=== PATIENT | male | born 1965 | race Caucasian/White ===

== ENCOUNTER 2024-08-22 19:44 | Inpatient (IN) | payer OTHER ==
[2024-08-22] MEDS ORDERED: NA CHLORIDE 0.9% 500 ML ONE (20:40)
[2024-08-22] MEDS ORDERED: ALBUMIN HUMAN 25% 100 ML IV ONE (20:41)
[2024-08-22 20:48] LABS: Absolute Lymphocytes (CBC) 0.6 K/uL (0.7-4.9); Absolute Monocytes 0.2 K/uL (0.1-1.3); Absolute Neutrophil 0.5 K/uL (1.8-8.0); Basophils % 1.1 % (0-1.3); Eosinophils % 2.2 % (0-4.4); Hematocrit 33.6 % (39.6-49.0); Lymphocytes % 42.9 % (15.3-44.8); MCH 32.5 pg (27.0-35.0); MCHC 35.6 g/dL (32.0-36.0); MCV 91.3 fL (80-100); MPV 9.4 fL (7.6-11.3); Monocytes % 16.5 % (3.3-12.3); Neutrophils % 37.3 % (41.7-73.7); Nucleated Red Blood Cells % 0.1 % (0-0); Platelets 59 thou/uL (152-406); RBC Red Blood Cell Count 3.68 M/uL (4.33-5.43); Red Cell Distribution Width 14.4 % (12.1-15.2)
[2024-08-22 21:02] LABS: Influenza A Ag Negative; Influenza B Ag Negative; SARS-CoV-2 Antigen Rapid Res Negative (Negative)
[2024-08-22 21:16] LABS: PT Prothrombin Time 11.2 SECONDS (10.0-13.0); PTT, Activated Partial Thromb 28.7 SECONDS (24.3-36.9); Protime INR 0.98
[2024-08-22 21:17] LABS: Albumin 1.9 g/dL (3.4-5.0); Albumin/Globulin Ratio 0.5 (1.1-1.8); Anion Gap 7.8 mEq/L (5.0-15.0); Bilirubin Total 0.7 mg/dL (0.2-1.0); Globulin 3.5 g/dL (2.3-3.5); Potassium 2.8 mEq/L (3.5-5.1); Protein, Total 5.4 g/dL (6.4-8.2)
[2024-08-22 21:25] LABS: Differential Total Cells Count 50; White Blood Cell Scan DIFF (OK)
[2024-08-22 21:26] LABS: Blood Morphology Comment NOT SEEN (NOT SEEN); Lymphocytes 47 % (15-42); Monocytes 16 % (0-10); Platelet Estimate DECR; Segmented Neutrophils 37 % (40-80)
--- NOTE | 2024-08-22 21:28 | RAD REPORT ---
EXAM: Chest Single View HISTORY: 58 years Male syncope, hypotension COMPARISON: None. FINDINGS: LUNGS/PLEURA: The lungs are clear. No pleural effusions or pneumothorax. No pulmonary edema. CARDIAC/MEDIASTINUM: The cardiac silhouette is within normal limits. UPPER ABDOMEN: No significant abnormality. BONES: No acute abnormality. LINES/TUBES/OTHER: Portacath. IMPRESSION: No evidence of acute cardiopulmonary disease.
[2024-08-22] MEDS ORDERED: NA CHLORIDE 0.9% 250 ML ONE (21:56)
[2024-08-22] MEDS ORDERED: KCL 20 MEQ/100 mL IVPB 100 ML IV ONE (21:56)
--- NOTE | 2024-08-22 22:34 | RAD REPORT ---
EXAMINATION: CT ABDOMEN AND PELVIS WITH CONTRAST CLINICAL INDICATION: Male, 58 years old.diarrhea, s/p paracentesis today TECHNIQUE: CT abdomen and pelvis was performed, after the administration of IV contrast, as per [facility] protocol. Axial, sagittal and coronal reconstructions were obtained. One or more of the following dose reduction techniques were used: Automated exposure control, adjustment of the mA and/o r kV according to patient size, and/or iterative reconstruction. Unless otherwise specified, incidental findings do not require dedicated imaging follow-up. [id number]. COMPARISON: No prior exam. FINDINGS: LOWER CHEST: No acute process identified.No significant pericardial effusion. Moderate circumferentia l thickening of the distal esophagus which could reflect esophagitis. Endoscopy could better evaluate. UPPER GI: Diffuse gastric wall thickening. LIVER: Cirrhotic liver morphology. No focal mass. GALLBLADDER/BILE DUCTS: Distended but otherwise unremarkable.? PANCREAS: No mass, ductal dilation, or saman-pancreatic fluid. SPLEEN: Moderate splenomegaly. ADRENALS: No adrenal masses. KIDNEYS AND URETERS: No hydronephrosis.No suspicious renal mass. ABDOMINAL AORTA AND OTHER VESSELS: Mild atherosclerotic changes. PERITONEUM: Moderate ascites. Mild peritoneal enhancement. LYMPH NODES: No pathologic lymphadenopathy. ABDOMINAL WALL: Unremarkable SMALL BOWEL/COLON: Diffuse colonic and small bowel wall thickening which may be due to portal hyperte nsion. Liquid contents in the colon. URINARY BLADDER: Underdistended but grossly unremarkable. REPRODUCTIVE ORGANS: No pathologic process. MUSCULOSKELETAL: No acute or suspicious osseous abnormality. ADDITIONAL FINDINGS: None. IMPRESSION: Cirrhosis with evidence of portal hypertension including moderate ascites, diffuse gastric and bowel wall thickening, and splenomegaly. Mild peritoneal enhancement could indicate peritonitis. Note that an enteritis or colitis would be difficult to exclude though bowel wall thickening is not uncomm on in the setting of portal hypertension.
[2024-08-22] MEDS ORDERED: LIDOCAINE 1% MPF 5 ML VIAL ONE (22:56)
--- NOTE | 2024-08-22 23:13 | EDPHYS ---
Physician Documentation [facility] Name: Rashaad Quintero Age: 58 yrs Sex: Male : 1965 Arrival Date: 08/22/2024 Time: 19:44 Bed 19 Private MD: ED Physician Ricardo Tan HPI: 08/22 20:26 This 58 yrs old Male presents to ER via EMS with complaints of Syncope. rn 20:26 The patient has experienced syncope. Onset: The symptoms/episode began/occurred today. rn Duration: This was a single episode. Associated injury: The patient did not suffer any apparent associated injury. Current symptoms: Currently, the patient is not experiencing any symptoms. The patient has not experienced similar symptoms in the past. Patient reports had paracentesis earlier in day. Went home. Got up to walk and passed out. No injuries. Reports has stomach cancer but denies liver problems. Gets paracentesis every few weeks, states 13 L versus pounds removed today. Denies any pain. Does report decreased appetite and diarrhea for the last few days. Reports possible fever at home but no fever here. Given IV fluids by EMS prior to arrival with improvement of blood pressure.. Historical: - Allergies: 19:55 NKDA; me1 - PMHx: 19:55 colorectal and stomach cancer; me1 - PSHx: 19:55 None; me1 - Immunization history:: Adult Immunizations up to date. - Infectious Disease History:: Denies. - Social history:: Smoking status: Patient denies any tobacco usage or history of. - Family history:: not pertinent. - Hospitalizations: : No recent hospitalization is reported. ROS: 20:26 Constitutional: Positive for subjective fever Cardiovascular: Negative for chest pain, rn palpitations, and edema, Respiratory: Negative for shortness of breath, cough, wheezing, and pleuritic chest pain, Abdomen/GI: Positive for anorexia and diarrhea MS/Extremity: Negative for injury and deformity, Skin: Negative for injury, rash, and discoloration, Neuro: Positive for generalized weakness and malaise Exam: 20:26 Constitutional: This is a well developed, well nourished patient who is awake, alert, rn and in no acute distress. Head/Face: Normocephalic, atraumatic. ENT: Dry mucous membranes Cardiovascular: Regular rate and rhythm. No pulse deficits. Respiratory: No increased work of breathing, no retractions or nasal flaring. Abdomen/GI: Soft, nontender MS/ Extremity: Pulses equal, no cyanosis. Neuro: Awake and alert, GCS 15 21:11 ECG was reviewed by the Attending Physician. rn Vital Signs: 19:48 BP 105 / 68; Pulse 86; Resp 17; Temp 97.6(O); Pulse Ox 100% ; Weight 60.5 kg; Height 5 me1 ft. 8 in. ; Pain 0/10; 20:00 BP 97 / 74; Pulse 84; Resp 19; Pulse Ox 99% ; me1 21:00 BP 106 / 75; Pulse 76; Resp 18; Pulse Ox 100% ; me1 22:00 BP 98 / 77; Pulse 79; Resp 14; Pulse Ox 100% ; me1 08/23 01:45 BP 107 / 76; Pulse 74; Resp 14; Pulse Ox 100% on R/A; ay 08/22 19:48 Body Mass Index 20.28 (60.50 kg, 172.72 cm) [facility] [place] 08/22 19:48 Pain Scale: Adult me Procedures: 08/22 23:06 Paracentesis: The risks and benefits of the procedure were discussed with the patient rn or guardian in detail, aseptic technique was employed throughout the procedure, the catheter was placed in the right lower quadrant, the fluid was normal, serous, the patient tolerated the procedure well, the patient did not experience any apparent complications, Used ultrasound guidance, pocket identified, 25-gauge 3-1/2 needle used, obtained 20 cc of nonbloody yellow fluid. MDM: 19:59 Medical Screening Exam initiated rn 23:11 Differential Diagnosis: Colitis, dehydration, vasovagal episode, hypotension secondary rn to paracentesis volume loss.. Data reviewed: vital signs, nurses notes, lab test result(s), radiologic studies, CT scan, and as a result, I will admit patient. Consideration of Admission/Observation Patient was admitted/placed on observation. Escalation of care including admission/observation considered. Care significantly affected by the following chronic conditions: Cancer and recurrent paracentesis. Counseling: I had a detailed discussion with the patient and/or guardian regarding the historical points, exam findings, and any diagnostic results supporting the discharge/admit diagnosis, lab results, radiology results, the need for further work-up and treatment in the hospital. Response to treatment: the patient's symptoms have mildly improved after treatment, and as a result, I will admit patient. ED course: Blood pressure has improved but still soft, normal lactic acid. I performed bedside diagnostic paracentesis to rule out SBP using ultrasound guidance. Tolerated well. Rocephin given empirically. Will admit to hospitalist service for further care. Patient's cancer care is at [facility] in [place] but patient does not want to be transferred at this time. Patient wants to stay here.. 08/22 20:07 Order name: Blood Culture Adult (2) rn 08/22 20:07 Order name: CBC with Diff; Complete Time: 22:34 rn 08/22 20:07 Order name: CMP; Complete Time: 21:19 rn 08/22 20:07 Order name: Lactate w/ 2H reflex if indic.; Complete Time: 21:11 rn 08/22 20:07 Order name: Protime (+inr); Complete Time: 21:19 rn 08/22 20:07 Order name: Ptt, Activated; Complete Time: 21:19 rn 08/22 20:07 Order name: Urinalysis w/ reflexes rn 08/22 20:07 Order name: COVID-19 Ag + Flu A+B Ag; Complete Time: 21:11 rn 08/22 20:58 Order name: CBC Smear Scan; Complete Time: 22:34 EDMS 08/22 21:26 Order name: Manual Differential; Complete Time: 22:34 EDMS 08/22 22:51 Order name: Body Fluid Culture rn 08/22 22:51 Order name: Fluid Cell Count,Body; Complete Time: 02:50 rn 08/23 00:00 Order name: Basic Metabolic Panel EDMS 08/23 00:00 Order name: Basic Metabolic Panel EDMS 08/23 00:00 Order name: CBC with Automated Diff EDMS 08/23 00:00 Order name: CBC with Automated Diff EDMS 08/22 20:07 Order name: Chest Single View XRAY; Complete Time: 22:34 rn 08/22 20:25 Order name: CT Abd/Pelvis - IV Contrast Only; Complete Time: 22:35 rn 08/22 20:07 Order name: EKG; Complete Time: 20:08 rn 08/22 20:07 Order name: Accucheck; Complete Time: 21:05 rn 08/22 20:07 Order name: Cardiac monitoring; Complete Time: 21:05 rn 08/22 20:07 Order name: EKG - Nurse/Tech; Complete Time: 21:05 rn 08/22 20:07 Order name: IV Saline Lock - Large Bore; Complete Time: 20:08 rn 08/22 20:07 Order name: Labs collected and sent; Complete Time: 20:38 rn 08/22 20:07 Order name: O2 Per Protocol; Complete Time: 20: rn 08/22 20:07 Order name: O2 Sat Monitoring; Complete Time: 20: rn 08/22 20:07 Order name: Vital Signs; Complete Time: 20: rn EC:11 Rate is 80 beats/min. Rhythm is regular. QRS [place] is Normal. UT interval is normal. QRS rn interval is normal. No Q waves. T waves are Normal. No ST changes noted. Clinical impression: NSR w/ Non-specific ST/T Changes. Interpreted by me. Reviewed by me. Administered Medications: 20:48 Drug: NS 0.9% IV 500 ml 500 ml IV at 1 bolus once; to be given as a bolus over 30 me1 minutes Volume: 500 ml; Route: IV; Rate: 1 bolus; Site: right antecubital; 23:44 Follow up: Response: No adverse reaction; IV Status: Completed infusion me1 20:48 Drug: Albumin IVPB 25 grams 100 ml IVPB once; (Note: Albumin 25% concentration) Volume: me1 100 ml; Route: IVPB; Site: right antecubital; 23:45 Follow up: IV Status: Completed infusion me1 22:06 Drug: Potassium Chloride IV 10 mEq IV at calculated rate once; administer over 1-2 me1 hours Route: IV; Rate: calculated rate; Site: right antecubital; 23:44 Follow up: Response: No adverse reaction; IV Status: Completed infusion me1 23:28 Drug: Lidocaine Infiltration (1 %) 1 vials 5 ml Infiltration once; to bedside {Note: me1 Administered by Dr Tan.} Volume: 5 ml; Route: Infiltration; 23:32 Drug: Rocephin IV 1 grams IV at calculated rate once; Given slow IV push per pharmacy me1 instructions Route: IV; Rate: calculated rate; Site: right antecubital; 23:32 Follow up: Response: No adverse reaction; IV Status: Completed infusion me1 23:44 Drug: Ondansetron IVP 2 mg IVP once; over 2 minutes Route: IVP; Site: right antecubital;me1 08/23 01:46 Follow up: Response: No adverse reaction ay Disposition Summary: 08/22/24 23:13 Hospitalization Ordered Notes: Hospitalization Status: Inpatient Admission rn Provider: Sera Castaneda rn Location: Telemetry/[facility] (Inpatient) rn Condition: Stable rn Problem: new rn Symptoms: have improved rn Bed/Room Type: Standard rn Room Assignment: 224(08/23/24 02:19) vk Diagnosis - Syncope rn - Hypotension, unspecified rn - Fever, unspecified rn Forms: - Medication Reconciliation Form rn - SBAR form rn - Leadership Thank You Letter rn Signatures: Dispatcher [employer] EDRicardo Richter MD MD rn Eddleman, Michelle, RN RN de1 Leti Guerra Awudu RN ay Corrections: (The following items were deleted from the chart) 08/22 19:56 19:55 Allergies: Morphine; [place] [id number] 22:52 22:52 Body Fluid Culture+BA.LAB.BRZ ordered. EDMS EDMS 22:52 22:52 FLUID CELL COUNT,BODY+H.LAB.BRZ ordered. EDMS EDMS 08/23 00:30 08/22 23:13 rn vk 08/23 00:55 00:30 205 vk vk 02:12 00:55 224 vk vk 02:19 02:12 205 vk vk
--- NOTE | 2024-08-22 23:13 | ER ---
Nurse's Notes [facility] Name: Rashaad Quintero Age: 58 yrs Sex: Male : 1965 Arrival Date: 08/22/2024 Time: 19:44 Bed 19 Private MD: Diagnosis: Syncope;Hypotension, unspecified;Fever, unspecified Presentation: 08/22 19:48 Chief complaint: EMS states: toned out for near syncope/hypotension. Patient is me1 currently on treatment for stomach cancer and had a paracentesis today where they removed 13 pounds of fluid. BP was 90/50 sitting when EMS arrived and 60/30 when he stood up. 18 g LAC and administered NS 600 ml. Oral temp of 102.1, given tylenol 650 mg PO. Coronavirus screen: Vaccine status: Patient reports receiving the 2nd dose of the covid vaccine. Ebola Screen: No symptoms or risks identified at this time. Initial Sepsis Screen: Does the patient meet any 2 criteria? No. Patient's initial sepsis screen is negative. Does the patient have a suspected source of infection? No. Patient's initial sepsis screen is negative. Risk Assessment: Do you want to hurt yourself or someone else? Patient reports no desire to harm self or others. Onset of symptoms was August 22, 2024. 19:48 Method Of Arrival: EMS: [facility] 19:48 Acuity: ORIN 3 tn1 Triage Assessment: 19:55 General: Appears in no apparent distress. well groomed, well developed, well nourished, tn1 Behavior is calm, cooperative, appropriate for age. Pain: Denies pain. EENT: No signs and/or symptoms were reported regarding the EENT system. Neuro: Level of Consciousness is awake, alert, obeys commands, Oriented to person, place, time, situation, Appropriate for age. Cardiovascular: Patient's skin is warm and dry. Respiratory: Airway is patent Respiratory effort is even, unlabored, Respiratory pattern is regular, symmetrical. GI: No signs and/or symptoms were reported involving the gastrointestinal system. Reports nausea, intermittent. : No signs and/or symptoms were reported regarding the genitourinary system. Derm: Skin is intact, is healthy with good turgor, Skin is pink, warm \T\ dry. Musculoskeletal: No signs and/or symptoms reported regarding the musculoskeletal system. Historical: - Allergies: 19:55 NKDA; me1 - PMHx: 19:55 colorectal and stomach cancer; me1 - PSHx: 19:55 None; me1 - Immunization history:: Adult Immunizations up to date. - Infectious Disease History:: Denies. - Social history:: Smoking status: Patient denies any tobacco usage or history of. - Family history:: not pertinent. - Hospitalizations: : No recent hospitalization is reported. Screenin:57 [facility] ED Fall Risk Assessment (Adult) History of falling in the last 3 months, me1 including since admission No falls in past 3 months (0 pts) Confusion or Disorientation No (0 pts) Intoxicated or Sedated No (0 pts) Impaired Gait No (0 pts) Mobility Assist Device Used No (0 pt) Altered Elimination No (0 pt) Score/Fall Risk Level 0 - 2 = Low Risk Maintained a safe environment, Provided non-skid footwear, Hourly rounding (assess needs \T\ fall precautionary measures) done. Abuse screen: Denies threats or abuse. Nutritional screening: No deficits noted. Tuberculosis screening: No symptoms or risk factors identified. Assessment: 19:57 General: See triage assessment. tn1 23:44 Reassessment: Vomited after rocephin, rec'd order for zofran. tn1 03/ 00:30 General: Appears in no apparent distress. comfortable, Behavior is calm, cooperative. ay Pain: Denies pain. Neuro: Level of Consciousness is awake, alert, obeys commands, Oriented to person, place, time, situation, Gait is unsteady, Speech is normal. Cardiovascular: Capillary refill < 3 seconds Patient's skin is warm and dry. Rhythm is sinus rhythm. Respiratory: Airway is patent Respiratory effort is even, unlabored, Respiratory pattern is regular, symmetrical. GI: Abdomen is round RUQ paracentesis Patient currently denies nausea, pain. : No signs and/or symptoms were reported regarding the genitourinary system. EENT: No signs and/or symptoms were reported regarding the EENT system. Musculoskeletal: Reports. Vital Signs: 08/22 19:48 BP 105 / 68; Pulse 86; Resp 17; Temp 97.6(O); Pulse Ox 100% ; Weight 60.5 kg; Height 5 me1 ft. 8 in. ; Pain 0/10; 20:00 BP 97 / 74; Pulse 84; Resp 19; Pulse Ox 99% ; me1 21:00 BP 106 / 75; Pulse 76; Resp 18; Pulse Ox 100% ; me1 22:00 BP 98 / 77; Pulse 79; Resp 14; Pulse Ox 100% ; [facility] 08/23 01:45 BP 107 / 76; Pulse 74; Resp 14; Pulse Ox 100% on R/A; ay 08/22 19:48 Body Mass Index 20.28 (60.50 kg, 172.72 cm) [facility] 08/22 19:48 Pain Scale: Adult [facility] ED Course: 08/22 19:48 Patient arrived in ED. me1 19:55 Triage completed. me1 19:55 Arm band placed on Patient placed in an exam room. me1 19:57 Patient has correct armband on for positive identification. Bed in low position. Call [facility] light in reach. Side rails up X 1. Provided Education on: POC. Verbalized understanding.. Client placed on continuous cardiac and pulse oximetry monitoring. NIBP monitoring applied. Pulse ox on. NIBP on. 19:57 No provider procedures requiring assistance completed. me1 19:57 Maintain EMS IV. Dressing intact. Good blood return noted. Site clean \T\ dry. Gauge \T\ me 1 site: 18g LAC. Flushed with 10 mL NS. 19:59 Ricardo Tan MD is Attending Physician. rn 20:07 Marta Carvajal, AMAYA is Primary Nurse. me1 20:27 Radiology exam delayed due to lab results not completed at this time. IV insertion jc4 attempt and/or patient not having appropriate IV at this time. 20:33 Initial lab(s) drawn, by me, sent to lab. First set of blood cultures drawn by me. me1 20:37 Inserted saline lock: 22 gauge in right antecubital area, using aseptic technique. me1 20:38 Blood Culture Adult (2) Sent. me1 20:38 CBC with Diff Sent. me1 20:38 CMP Sent. me1 20:38 Lactate w/ 2H reflex if indic. Sent. me1 20:38 Protime (+inr) Sent. me1 20:38 Ptt, Activated Sent. me1 20:38 COVID-19 Ag + Flu A+B Ag Sent. me1 20:38 COVID swab sent to lab. Flu and/or RSV swab sent to lab. me1 20:41 Second set of blood cultures drawn by me. me1 20:48 Inserted saline lock:. me1 20:59 EKG done, by ED staff, reviewed by Ricardo Tan MD. me1 21:21 Chest Single View XRAY In Process Unspecified. EDMS 22:25 CT Abd/Pelvis - IV Contrast Only In Process Unspecified. EDMS 23:12 Sera Castaneda MD is Hospitalizing Provider. rn 23:29 Body Fluid Culture Sent. me1 23:29 Fluid Cell Count,Body Sent. me1 23:29 fluid from diagnostic paracentesis. me1 08/23 03:08 Patient admitted, IV remains in place. ay Administered Medications: 08/22 20:48 Drug: NS 0.9% IV 500 ml 500 ml IV at 1 bolus once; to be given as a bolus over 30 me1 minutes Volume: 500 ml; Route: IV; Rate: 1 bolus; Site: right antecubital; 23:44 Follow up: Response: No adverse reaction; IV Status: Completed infusion me1 20:48 Drug: Albumin IVPB 25 grams 100 ml IVPB once; (Note: Albumin 25% concentration) Volume: me1 100 ml; Route: IVPB; Site: right antecubital; 23:45 Follow up: IV Status: Completed infusion me1 22:06 Drug: Potassium Chloride IV 10 mEq IV at calculated rate once; administer over 1-2 me1 hours Route: IV; Rate: calculated rate; Site: right antecubital; 23:44 Follow up: Response: No adverse reaction; IV Status: Completed infusion me1 23:28 Drug: Lidocaine Infiltration (1 %) 1 vials 5 ml Infiltration once; to bedside {Note: me1 Administered by Dr Tan.} Volume: 5 ml; Route: Infiltration; 23:32 Drug: Rocephin IV 1 grams IV at calculated rate once; Given slow IV push per pharmacy me1 instructions Route: IV; Rate: calculated rate; Site: right antecubital; 23:32 Follow up: Response: No adverse reaction; IV Status: Completed infusion me1 23:44 Drug: Ondansetron IVP 2 mg IVP once; over 2 minutes Route: IVP; Site: right antecubital;tn1 08/23 01:46 Follow up: Response: No adverse reaction ay Medication: 08/22 19:57 VIS not applicable for this client. me1 Outcome: 23:13 Decision to Hospitalize by Provider. rn 08/23 03:08 Admitted to Med/surg accompanied by nurse, peggy Condition: stable Instructed on the need for admit, 03:09 Patient left the ED. ay Signatures: Dispatcher [employer] EDRicardo Richter MD MD rn Eddleman, Michelle, RN RN tn1 Eusebio Pink 4 Pamela Watson RN RN ay Corrections: (The following items were deleted from the chart) 08/22 19:56 19:55 Allergies: Morphine; me1 me1
[2024-08-22] MEDS ORDERED: CEFTRIAXONE 1000 MG/VIAL ONE (23:31)
[2024-08-22] MEDS ORDERED: ONDANSETRON 4 MG/2 ML VIAL ONE (23:42)
[2024-08-22 23:45] LABS: Body Fluid Source PERITONEAL; Color of fluid Yellow (COLORLESS); Tube # SINGLE
[2024-08-22 23:52] LABS: Body Fluid WBC 132 /mm^3
[2024-08-22 23:54] LABS: Appearance CLEAR (CLEAR)
--- NOTE | 2024-08-23 00:04 | P.HP ---
Patient History Date of Service: 08/23/24 History of Present Illness: This is a 58-year-old male with a past medical history of gastric cancer who presented with syncope after large-volume paracentesis of 13 L at [facility]. He is accompanied by his at bedside. He states he went home after the paracentesis and fell in the restroom. He denies hitting his head or loss of consciousness. Associated symptoms include diarrhea. He states he has had 4 episodes of loose stools earlier today. In addition he states his urine output has been low. Furthermore he has been on a few different antibiotics. He denies any recent sick contacts. The last time he received chemotherapy was about a week and a half ago. He sees Dr. Keller at [facility]. Review of Systems General: As per HPI Physical Examination - Physical Exam General: Alert, Cachectic HEENT: Normocephalic Neck: Supple Respiratory: Normal air movement Cardiovascular: No edema, Other (Port in upper right chest wall) Capillary refill: <2 Seconds Gastrointestinal: Soft and benign Musculoskeletal: No clubbing Integumentary: No rashes Neurological: Normal speech Lymphatics: No axilla or inguinal lymphadenopathy - Studies Laboratory Data (last 24 hrs) 08/22/24 08/22/24 08/22/24 20:33 20:33 20:33 WBC 1.30 L Hgb 12.0 L Hct 33.6 L Plt Count 59 L PT 11.2 INR 0.98 APTT 28.7 Sodium 131 L Potassium 2.8 L BUN 15 Creatinine 0.89 Glucose 131 H Total Bilirubin 0.7 AST 17 ALT 15 L Alkaline Phosphatase 194 H Assessment and Plan - Plan Syncope Colitis /diarrhea Gastric cancer Cirrhosis Ascites Pancytopenia Hypokalemia Hyponatremia Severe neutropenia Diagnostic paracentesis performed in the ED Await for cell count and cultures from paracentesis Continue Rocephin Continue IV fluid, consider IV albumin as well if pressure lower Monitor hemodynamic Blood cultures pending Replace electrolytes per protocol Pancytopenia likely secondary to chemotherapy Obtain stool culture DVT prophylaxis with SCDs - Advance Directives Does patient have a Living Will: No Does patient have a Durable POA for Healthcare: No
[2024-08-23 00:24] LABS: Fluid Total Cells Count 100
[2024-08-23 00:25] LABS: Body Fluid Lymphocytes 74 %
[2024-08-23 05:23] LABS: Absolute Lymphocytes (CBC) 1.2 K/uL (0.7-4.9); Absolute Monocytes 0.2 K/uL (0.1-1.3); Absolute Neutrophil 0.6 K/uL (1.8-8.0); Basophils % 0.9 % (0-1.3); Eosinophils % 2.4 % (0-4.4); Hemoglobin 11.4 g/dL (13.6-17.9); Lymphocytes % 55.1 % (15.3-44.8); MCH 33.4 pg (27.0-35.0); MCHC 36.8 g/dL (32.0-36.0); MCV 90.9 fL (80-100); MPV 9.7 fL (7.6-11.3); Monocytes % 11.2 % (3.3-12.3); Neutrophils % 30.4 % (41.7-73.7); Nucleated Red Blood Cells % 0.3 % (0-0); Platelets 61 thou/uL (152-406); RBC Red Blood Cell Count 3.41 M/uL (4.33-5.43); Red Cell Distribution Width 14.1 % (12.1-15.2)
[2024-08-23 05:48] LABS: Anion Gap 8.7 mEq/L (5.0-15.0); Potassium 2.7 mEq/L (3.5-5.1)
[2024-08-23 06:19] VITALS: BMI 20.1
[2024-08-23] MEDS ORDERED: ONDANSETRON 4 MG/2 ML VIAL IV PRN (08:00)
[2024-08-23] MEDS: CEFTRIAXONE 1,000 MG in NA CHLORIDE 0.9% 50 ML IVPB SCH (08:30)
[2024-08-23] MEDS: KCL 20 MEQ/100 mL IVPB 20 MEQ/100 ML BAG IV SCH ×2 (08:30→22:14)
[2024-08-23] MEDS ORDERED: FLU (Fluarix Triv) TS24-25(6MOS UP)/PF 45 MCG/0.5 ML Syringe IM ONE (09:45)
[2024-08-23] MEDS: NA CHLORIDE 0.9% 250 ML ONE (11:50)
[2024-08-23 14:30] LABS: Sqamous Epithelial <5 /HPF (None Seen); Urine Bacteria <20 /HPF (<20); Urine Bilirubin NEGATIVE (Negative); Urine Blood Negative (Negative); Urine Clarity Clear (Clear); Urine Color Yellow (Yellow); Urine Culture Reflex Order NOT NEEDED; Urine Glucose NEGATIVE (Negative); Urine Ketones NEGATIVE (Negative); Urine Microscopic Reflex YN ORDER UMIC; Urine Mucus Slight /HPF (None Seen); Urine Nitrite NEGATIVE (Negative); Urine Protein 1+ (Negative); Urine RBC <5 /HPF (None Seen); Urine Urobilinogen Normal (Normal); Urine WBC <5 /HPF (<5); Urine pH 6.5 (5.0-7.0)
[2024-08-23 14:55] LABS: Specific Gravity > 1.030 (1.005-1.030)
--- NOTE | 2024-08-23 15:33 | P.PN ---
Subjective Date of Service: 08/23/24 Patient reports frequent watery diarrhea. He has been ambulating. He reports poor appetite. No recorded fever. Physical Examination - Vital Signs Temperature: 97.6 F Blood Pressure: 97/54 Pulse: 79 Respirations: 14 Pulse Ox (%): 99 - Studies Laboratory Data (last 24 hrs) 08/22/24 08/22/24 08/22/24 20:33 20:33 20:33 WBC 1.30 L Hgb 12.0 L Hct 33.6 L Plt Count 59 L PT 11.2 INR 0.98 APTT 28.7 Sodium 131 L Potassium 2.8 L BUN 15 Creatinine 0.89 Glucose 131 H Total Bilirubin 0.7 AST 17 ALT 15 L Alkaline Phosphatase 194 H Microbiology Data (last 24 hrs): 08/22/24 23:06 Body Fluid - Abdomen Gram Stain - Final Assessment And Plan - Plan Physical examination General: Alert and oriented x3, NAD, cachectic HEENT: Conjunctiva not pale, anicteric sclera Neck: Supple, no elevated JVD Heart: Heart sounds 1 and 2 normal, regular rhythm, normal rate, no pedal edema Lungs: Clear to auscultation bilaterally, adequate breath sounds bilaterally, no rhonchi or crackles. Abdomen: Soft, nondistended, nontender, normal bowel sounds. Extremities: No tenderness, no deformity Skin: Normal skin turgor, no rash, no nodules or ulcers. Neuro: No focal motor deficit. Normal speech. Psychiatry: Normal mood, no agitation. Diagnosis Syncope Colitis /diarrhea Gastric cancer Cirrhosis Ascites Pancytopenia Hypokalemia Hyponatremia Severe neutropenia Plan: Syncope Acute diarrhea Colitis Hypokalemia Hyponatremia Likely orthostatic. Patient has borderline low BP. Aggressive IV hydration. Check stool for C. difficile. Follow-up on stool studies. IV Cipro and Flagyl Monitor BP Diet as tolerated. Correct electrolytes as needed. Liver cirrhosis Portal hypertension Ascites Status post paracentesis in the ED. IV fluid with albumin infusion to avoid third spacing given hypoalbuminemia. Start Aldactone. Lasix once patient is adequately hydrated. No encephalopathy. Pancytopenia History of gastric cancer Pancytopenia likely related to chemotherapy. Increase lymphocytic differential Monitor CBC closely. Oncology consult if neutropenia does not improve. DVT prophylaxis: SCD Advanced directive: Full code
[2024-08-23] MEDS ORDERED: PROCHLORPERAZINE 5 MG TAB PO PRN (15:46)
[2024-08-23 16:43] LABS: C.diff Antigen/Toxin Ag neg : Tox neg (NEG : NEG); CDIFF INTERNAL NEG CONTROL White Background (WHITE BKGD); STOOL CONSISTENCY Liquid/Semi-Solid
[2024-08-23] MEDS: ALBUMIN HUMAN 25% 200 ML IV SCH (17:28)
[2024-08-23] MEDS: METRONIDAZOLE 500mg IVPB 500 MG/100 ML BAG IV SCH (17:28)
[2024-08-23] MEDS: NA CHLORIDE 0.9% 100 ML ONE (17:29)
[2024-08-23] MEDS: D5 0.9 NS 1,000 ML with POTASSIUM CL 40 MEQ IV SCH (17:42)
[2024-08-23] MEDS: ACETAMINOPHEN 500 MG TAB PO PRN (17:42)
[2024-08-23] MEDS: OLANZapine 2.5 MG TAB PO SCH (20:09)
[2024-08-24] MEDS: ALBUMIN HUMAN 25% 200 ML IV SCH (04:18)
[2024-08-24 06:55] LABS: MPV 8.9 fL (7.6-11.3); Platelets 56 thou/uL (152-406)
[2024-08-24 07:01] LABS: Anion Gap 8.3 mEq/L (5.0-15.0); Potassium 3.3 mEq/L (3.5-5.1)
[2024-08-24 07:25] LABS: Absolute Lymphocytes (CBC) 0.7 K/uL (0.7-4.9); Absolute Monocytes 0.2 K/uL (0.1-1.3); Basophils % 0.9 % (0-1.3); Eosinophils % 1.7 % (0-4.4); Hematocrit 25.3 % (39.6-49.0); Lymphocytes % 37.2 % (15.3-44.8); MCH 32.6 pg (27.0-35.0); MCHC 35.7 g/dL (32.0-36.0); MCV 91.4 fL (80-100); Monocytes % 11.3 % (3.3-12.3); Neutrophils % 48.9 % (41.7-73.7); Nucleated Red Blood Cells % 0.9 % (0-0); RBC Red Blood Cell Count 2.77 M/uL (4.33-5.43); Red Cell Distribution Width 14.4 % (12.1-15.2)
[2024-08-24] MEDS: POTASSIUM 25 MEQ EFFERV TAB PO ONE (08:06)
[2024-08-24] MEDS: DULOXETINE 30 MG CAP PO SCH (08:06)
[2024-08-24] MEDS: LOPERAMIDE HCL 2 MG CAPSULE PO STA (12:05)
[2024-08-24 14:57] VITALS: O2SAT 98
--- NOTE | 2024-08-24 16:32 | P.DS ---
Admission Date: 08/22/24 Discharge Date: 08/24/24 Disposition: ROUTINE DISCHARGE Discharge Condition: FAIR Brief History of Present Illness: 58-year-old male with a past medical history of gastric cancer who presented with syncope after large-volume paracentesis of 13 L at [facility]. He was accompanied by his at bedside. He states he went home after the paracentesis and fell in the restroom. He denies hitting his head or loss of consciousness. Patient also reported profuse diarrhea. He stated his last chemotherapy was about a couple of weeks ago. He reported low urine output associated with the diarrhea. Furthermore he has been on a few different antibiotics. Blood work showed neutropenia, hypokalemia, hyponatremia. CT abdomen and pelvis showed Cirrhosis with evidence of portal hypertension including moderate ascites, diffuse gastric and bowel wall thickening, and splenomegaly. Mild peritoneal enhancement could indicate peritonitis. Patient was hospitalized for further management. Hospital Course: Diagnosis Syncope Colitis /diarrhea Gastric cancer Cirrhosis Ascites Pancytopenia Hypokalemia Hyponatremia Severe neutropenia Patient admitted to the medical floor the following medical problems addressed: Syncope Acute diarrhea Colitis Hypokalemia Hyponatremia Syncope likely orthostatic. Patient has borderline low BP. He was treated with aggressive IV hydration. Stool for C. difficile was negative. Patient treated with IV Cipro and Flagyl He was given a dose of Imodium which helped with the diarrhea BP improved and patient is currently normotensive. Patient tolerated diet He was given electrolyte replacements. Liver cirrhosis Portal hypertension Ascites Status post paracentesis in the ED. IV fluid with albumin infusion to avoid third spacing given hypoalbuminemia. Patient started on Aldactone. Lasix once patient is adequately hydrated. Follow-up with GI as outpatient. Pancytopenia History of gastric cancer Pancytopenia likely related to chemotherapy. Increase lymphocytic differential Neutropenia improved. Patient to follow-up with his oncology team as outpatient. Vital Signs/Physical Exam: Temp Pulse Resp BP Pulse Ox 97.7 F 82 16 96/57 L 16 L 08/24/24 12:00 08/24/24 12:00 08/24/24 12:00 08/24/24 12:08/24/24 12:00 General: Alert, In no apparent distress, Cachectic HEENT: Mucous membr. moist/pink Neck: Supple, JVD not distended Respiratory: Clear to auscultation bilaterally, Normal air movement Cardiovascular: No edema, Regular rate/rhythm, Normal S1 S2 Gastrointestinal: Normal bowel sounds, Soft and benign, Non-distended, No tenderness Musculoskeletal: No swelling Integumentary: No rashes, No cyanosis Neurological: Normal strength at 5/5 x4 extr, Cranial nerves 3-12 intact Laboratory Data at Discharge: WBC 2.00 thou/uL (4.3-10.9) L 08/24/24 06:39 Hgb 9.0 g/dL (13.6-17.9) L D 08/24/24 06:39 Hct 25.3 % (39.6-49.0) L 08/24/24 06:39 Plt Count 56 thou/uL (152-406) L 08/24/24 06:39 PT 11.2 SECONDS (10.0-13.0) 08/22/24 20:33 INR 0.98 08/22/24 20:33 APTT 28.7 SECONDS (24.3-36.9) 08/22/24 20:33 Sodium 133 mEq/L (136-145) L 08/24/24 06:39 Potassium 3.3 mEq/L (3.5-5.1) L 08/24/24 06:39 BUN 10 mg/dL (7-18) 08/24/24 06:39 Creatinine 0.63 mg/dL (0.70-1.30) L 08/24/24 06:39 Glucose 96 mg/dL (74-106) 08/24/24 06:39 Total Bilirubin 0.7 mg/dL (0.2-1.0) 08/22/24 20:33 AST 17 U/L (15-37) 08/22/24 20:33 ALT 15 U/L (16-61) L 08/22/24 20:33 Alkaline Phosphatase 194 U/L (45-117) H 08/22/24 20:33 Home Medications: Duloxetine HCl 60 mg PO DAILY 08/23/24 OLANZapine [Olanzapine] 2.5 mg PO BEDTIME 08/23/24 Ondansetron [Zofran (Odt)*] 8 mg PO Q8HR PRN 08/23/24 Prochlorperazine [Compazine*] 10 mg PO Q6HR PRN 08/23/24 Ciprofloxacin HCl [Cipro] 500 mg PO BID #10 tab 08/24/24 metroNIDAZOLE [Flagyl] 500 mg PO Q8H #15 tab 08/24/24 New Medications: Ciprofloxacin HCl [Cipro] 500 mg PO BID #10 tab metroNIDAZOLE [Flagyl] 500 mg PO Q8H #15 tab Diet: Regular Activity: Fall precautions Followup: NONE,NONE [Primary Care Provider] - 1-2 Weeks Julio C Amaya MD [ACTIVE - CAN ADMIT] - 1-2 Weeks (For liver cirrhosis and ascites) Time spent managing pt's care (in minutes): 35
[2024-08-24 16:39] VITALS: BP 102/64; TEMP 97.5
--- NOTE | 2024-08-26 11:14 | EKG ---
Test Date: 2024-08-22 Test Time: 20:53:13 Paper Control Clerk: MEASUREMENT RESULTS: Intervals: Rate: 80 VA: 160 QRSD: 100 QT: 436 QTc: 502 Mcmillan: P: 66 VA: 160 QRS: 75 T: 73 INTERPRETIVE STATEMENTS: Normal sinus rhythm Prolonged QT Abnormal ECG Compared to ECG 11/04/2023 15:17:17 No significant changes Electronically Signed On 08-26-24 11:03:43 CDT by Preston Bone
== END 2024-08-24 18:36 | disposition home or self-care (01) | DRG 312 ==
LOC: ER 19:44 → ERHOLD 23:55 → 2ND 08-23 03:24
PROVIDERS: ADMIT Family Medicine; ATTEND Internal Medicine
PROC: 0W9G3ZZ Drainage of Peritoneal Cavity, Percutaneous Approach (ICD-10-PCS; principal; 2024-08-22)
DX: R55 Syncope and collapse (principal); D61.810 Antineoplastic chemotherapy induced pancytopenia; C16.9 Malignant neoplasm of stomach, unspecified; E87.1 Hypo-osmolality and hyponatremia; R64 Cachexia; R18.8 Other ascites; K76.6 Portal hypertension; E87.6 Hypokalemia; E88.09 Other disorders of plasma-protein metabolism, not elsewhere classified; K74.60 Unspecified cirrhosis of liver; K52.9 Noninfective gastroenteritis and colitis, unspecified; T45.1X5A Adverse effect of antineoplastic and immunosuppressive drugs, initial encounter; Z68.20 Body mass index [BMI] 20.0-20.9, adult; Z11.52 Encounter for screening for COVID-19
CPT/HCPCS: 36415; 71045; 74177; 80048; 80053; 81001; 83605; 84132; 85025; 85610; 85730; 87040; 87070; 87177; 87209; 87324; 87428; 89050; 93005; 96365; 96366; 96375; 99285; J0696; J2003; J2405; J3480; J7040; J7042; J7050; P9047; Q9967

== ENCOUNTER 2024-09-03 20:05 | Emergency (ER) | payer OTHER ==
[2024-09-03] MEDS ORDERED: NA CHLORIDE 0.9% 1,000 ML ONE ×2 (21:18→22:41)
[2024-09-03 21:19] LABS: Albumin 2.5 g/dL (3.4-5.0); Albumin/Globulin Ratio 0.8 (1.1-1.8); Anion Gap 13.9 mEq/L (5.0-15.0); Bilirubin Total 1.2 mg/dL (0.2-1.0); C-Reactive Protein 5.18 mg/L (<3.00); Globulin 3.3 g/dL (2.3-3.5); Potassium 3.9 mEq/L (3.5-5.1); Protein, Total 5.8 g/dL (6.4-8.2)
[2024-09-03 21:22] LABS: Troponin High Sensitivity 69.7 pg/mL (<58.9)
--- NOTE | 2024-09-03 22:32 | RAD REPORT ---
EXAM: Chest Single View HISTORY: 58 years Male Left CVL placement COMPARISON: 08/22/2024 FINDINGS: LUNGS/PLEURA: The lungs are clear. No pleural effusions or pneumothorax. No pulmonary edema. CARDIAC/MEDIASTINUM: The cardiac silhouette is within normal limits. UPPER ABDOMEN: No significant abnormality. BONES: No acute abnormality. LINES/TUBES/OTHER: Port-A-Cath tip overlies the SVC. Left IJ approach central line with tip angled ce phalad either into the right subclavian vein or distal internal jugular vein. IMPRESSION: No evidence of acute cardiopulmonary disease. The left IJ approach central line is angled cephalad and likely terminates either in the right subcla vian vein or distal IJ. This should be repositioned/removed. No pneumothorax. THIS REPORT CONTAINS FINDINGS THAT MAY BE CRITICAL TO PATIENT CARE. The emergent findings were commun icated to Dr. Yeung on 09/03/2024 10:29 PM.
[2024-09-03 22:35] LABS: PT Prothrombin Time 11.1 SECONDS (10-13.0); PTT, Activated Partial Thromb 23.8 SECONDS (27.2-37.4); Protime INR 0.97
[2024-09-03] MEDS ORDERED: CEFEPIME 2 GM VIAL ONE (22:40)
[2024-09-03] MEDS ORDERED: NA CHLORIDE 0.9% 250 ML ONE (22:40)
[2024-09-03] MEDS ORDERED: VANCOMYCIN 1 GM/VIAL ONE (22:40)
[2024-09-03] MEDS ORDERED: NA CHLORIDE 0.9% 100 ML ONE (22:41)
--- NOTE | 2024-09-03 22:56 | RAD REPORT ---
EXAMINATION: Head Brain Wo Cont CLINICAL INDICATION: Male, 58 years old.SYNCOPE TECHNIQUE: Axial CT images from the skull base to the vertex without intravenous contrast. Coronal an d sagittal reformatted images were created from the data set. One or more of the following dose reduction techniques were used: Automated exposure control, adjustment of the mA and/or kV according to patient size, and/or iterative reconstruction. Unless otherwise specified, incidental findings do not require dedicated imaging follow-up. [id number]. COMPARISON: No prior exam. FINDINGS: INTRACRANIAL: No acute intracranial hemorrhage. No hydrocephalus. No mass effect or midline shift. Mi ld chronic small vessel ischemic changes.Mild cerebral atrophy. VASCULATURE: No visualized abnormalities in the arteries or dural venous sinuses. SCALP/SKULL: No calvarial fracture identified. No acute soft tissue abnormality. SINUSES: The visualized paranasal sinuses are mostly clear. No significant mastoid fluid. IMPRESSION: No acute intracranial abnormality.
--- NOTE | 2024-09-03 23:06 | RAD REPORT ---
EXAM: CT CHEST, ABDOMEN AND PELVIS WITHOUT CONTRAST CLINICAL INDICATION: Male, 58 years old syncope , gastric cancer TECHNIQUE: CT chest, abdomen and pelvis was performed, without IV contrast, as per department protoco l. Axial, sagittal and coronal reconstructions were obtained. One or more of the following dose reduction techniques were used: Automated exposure control, adjustment of the mA and/or kV according to the patient size, and/or iterative reconstruction. Unless otherwise specified, incidental findings do not require dedicated imaging follow-up. [id number]. COMPARISON: 08/22/24 FINDINGS: The lack of intravenous contrast limits the sensitivity of this exam for evaluation of solid visceral organs, vascular structures, and retroperitoneum. THORAX: LOWER NECK AND CHEST WALL: Right IJ approach Port-A-Cath. Left IJ approach central line which is angl ed cephalad and terminates in the right subclavian vein. This was previously communicated to the emergency department.. LUNGS AND AIRWAYS: Airways are clear. No evidence of airspace or interstitial process.No suspicious a nd/or stable pulmonary nodules. PLEURA: No pleural effusion. No pneumothorax. MEDIASTINUM AND LYMPH NODES: No mediastinal mass or fluid collection. Normal size mediastinal, hilar, and axillary lymph nodes. Fluid distended esophagus. THORACIC AORTA: No thoracic aortic aneurysm. Atherosclerotic changes are present. PULMONARY ARTERIES: Caliber is within normal limits. HEART: Normal heart size. Mild coronary artery calcifications.No significant pericardial effusion. ABDOMEN/PELVIS: UPPER GI: Nonspecific wall thickening of the gastric antrum which may be underdistended. LIVER: Cirrhotic liver morphology. GALLBLADDER/BILE DUCTS: Distended gallbladder which is otherwise nonspecific.? PANCREAS: No mass, ductal dilation, or saman-pancreatic fluid. SPLEEN: Unremarkable. ADRENALS: No adrenal masses. KIDNEYS AND URETERS: No hydronephrosis.Limited evaluation for renal lesions in the absence of IV cont rast. ABDOMINAL AORTA AND OTHER VESSELS: Mild atherosclerotic changes. PERITONEUM: Moderate free fluid. Free air is also present. This is primarily within the small bowel m esentery but also in the retroperitoneum. LYMPH NODES: No pathologic lymphadenopathy. ABDOMINAL WALL: Unremarkable SMALL BOWEL/COLON: Mild diffuse small bowel wall thickening. Free air is noted. This may be from smal l bowel in the central abdomen or possibly from the left lower quadrant. It is less likely colonic. URINARY BLADDER: Underdistended but grossly unremarkable. REPRODUCTIVE ORGANS: No pathologic process. COMBINED: MUSCULOSKELETAL: No acute or suspicious osseous abnormality. ADDITIONAL FINDINGS: None. IMPRESSION: 1. Intraperitoneal and retroperitoneal free air. Source of free air is uncertain but suspect small katiana wel or possibly duodenal etiology given the retroperitoneal component. The small bowel is diffusely thickened. Recommend surgical consultation. 2. Fluid distended esophagus and stomach. Consider NG tube decompression. 3. Left IJ approach central line crosses midline and terminates at the right subclavian vein. This sh ould be removed/reposition. Finding was previously reported to the referring physician. 4. Nonspecific distended gallbladder, acute cholecystitis unlikely.
[2024-09-03 23:14] LABS: Influenza A Ag Negative; Influenza B Ag Negative; SARS-CoV-2 Antigen Rapid Res Negative (Negative)
[2024-09-04 00:09] LABS: Absolute Lymphocytes (CBC) 0.2 K/uL (0.7-4.9); Absolute Neutrophil 0.3 K/uL (1.8-8.0); Basophils % 0.3 % (0-1.3); Eosinophils % 0.2 % (0-4.4); Hematocrit 25.2 % (39.6-49.0); Lymphocytes % 36.4 % (15.3-44.8); MCH 32.5 pg (27.0-35.0); MCHC 35.8 g/dL (32.0-36.0); MCV 90.7 fL (80-100); MPV 9.4 fL (7.6-11.3); Monocytes % 4.5 % (3.3-12.3); Neutrophils % 58.6 % (41.7-73.7); Platelets 31 thou/uL (152-406); RBC Red Blood Cell Count 2.78 M/uL (4.33-5.43)
--- NOTE | 2024-09-04 00:47 | EDPHYS ---
Physician Documentation [facility] Name: Rashaad Quintero Age: 58 yrs Sex: Male : 1965 Arrival Date: 09/03/2024 Time: 20:05 Bed 14 Private MD: ED Physician Albert Yeung HPI: 09/03 20:15 This 58 yrs old Male presents to ER via Unassigned with complaints of syncope sp4 and abd pain, diarrhea . 09/04 00:39 58-year-old male with history of gastric cancer last chemotherapy 08/27/[address] in [place], presents with syncopal episode at 530 today presents with EMS. Patient reports loss of appetite for the past several days and feeling unwell. Patient is hypertensive on presentation.. 00:46 Recent admission 08/22/2024 for diagnosis of syncope, colitis and diarrhea, gastric sp4 cancer, cirrhosis, ascites, pancytopenia, hypokalemia, hyponatremia, severe neutropenia,. Home medications include duloxetine 60 mg daily, olanzapine 2.5 mg p.o. bedtime, ondansetron 8 mg every 6 hours as needed, Compazine 10 mg p.o. every 6 hours as needed, ciprofloxacin 500 mg twice daily, metronidazole 500 mg twice daily, dexamethasone 4 mg PO daily . Historical: - Allergies: 09/03 20:28 Morphine; al5 - PMHx: 20:26 colorectal and stomach cancer; al5 - PSHx: 20:26 None; al5 - Immunization history:: Adult Immunizations up to date. - Infectious Disease History:: Denies. - Social history:: Smoking status: Patient denies any tobacco usage or history of. - Family history:: not pertinent. ROS: 09/04 00:39 Constitutional: Negative for fever, chills, and weight loss, positive loss of appetite, sp4 positive generalized weakness, positive syncopal episode. All other systems are negative, Exam: 00:39 Constitutional: Ill-appearing male, hypertensive on arrival, toxic appearing, sp4 generalized pallor Head/Face: Normocephalic, atraumatic. Eyes: Pupils equal round and reactive to light, extra-ocular motions intact. Lids and lashes normal. Conjunctiva and sclera are not injected. Cornea within normal limits. Periorbital areas with no swelling, redness, or edema. ENT: Nares patent. No nasal discharge, no septal abnormalities noted. Tympanic membranes are normal and external auditory canals are clear. Oropharynx with no redness, swelling, or masses, exudates, or evidence of obstruction, uvula midline. Mucous membranes moist. Neck: Trachea midline, no thyromegaly or masses palpated, and no cervical lymphadenopathy. Supple, full range of motion without nuchal rigidity, or vertebral point tenderness. Chest/axilla: Normal chest wall appearance and motion. Nontender with no deformity. No lesions are appreciated. Cardiovascular: Regular rate and rhythm with a normal S1 and S2. No gallops, murmurs, or rubs. Normal PMI, no JVD. No pulse deficits. Respiratory: Lungs have equal breath sounds bilaterally, clear to auscultation and percussion. No rales, rhonchi or wheezes noted. No increased work of breathing, no retractions or nasal flaring. Abdomen/GI: Distended abdomen with hypoactive bowel sounds, non tympanitic but distended Back: No spinal tenderness. No costovertebral tenderness. Male : Normal genitalia with no discharge or lesions. Skin: Warm, dry with normal turgor. Normal color with no rashes, no lesions, and no evidence of cellulitis. MS/ Extremity: Pulses equal, no cyanosis. Neurovascular intact. Full, normal range of motion. Neuro: Awake and alert, GCS 15, oriented to person, place, time, and situation. Cranial nerves II-XII grossly intact. Motor strength 5/5 in all extremities. Sensory grossly intact. Psych: Awake, alert, with orientation to person, place and time. Behavior, mood, and affect are within normal limits 00:39 ECG was reviewed by the Attending Physician. EKG at 2018 normal sinus rhythm, prolonged QT, rate 96. Otherwise normal Vital Signs: 09/03 20:13 BP 101 / 77; Pulse 96; Resp 16; Temp 94.3; Pulse Ox 100% on R/A; Weight 59.42 kg; al5 Height 5 ft. 8 in. ; 20:30 BP 96 / 71; Pulse 93; Resp 13; Pulse Ox 100% ; al5 21:00 BP 92 / 65; Pulse 96; Resp 19; Pulse Ox 99% on R/A; al5 21:30 BP 93 / 57; Pulse 95; Resp 18; Pulse Ox 99% on R/A; al5 22:15 BP 110 / 84; Pulse 83; Resp 16; Temp 97.6; Pulse Ox 100% on R/A; al5 22:30 BP 108 / 80; Pulse 82; Resp 17; Pulse Ox 100% ; al5 23:00 BP 91 / 74; Pulse 87; Resp 14; Pulse Ox 100% ; al5 23:30 BP 118 / 77; Pulse 76; Resp 14; Pulse Ox 100% ; al5 09/04 00:00 BP 117 / 78; Pulse 74; Resp 15; Pulse Ox 100% ; al5 00:30 BP 107 / 85; Pulse 87; Resp 16; Pulse Ox 100% ; al5 01:00 BP 105 / 81; Pulse 86; Resp 17; Pulse Ox 100% ; al5 01:30 BP 108 / 70; Pulse 87; Resp 14; Pulse Ox 100% ; al5 02:00 BP 108 / 78; Pulse 89; Resp 15; Pulse Ox 100% ; al5 02:30 BP 102 / 75; Pulse 86; Resp 14; Pulse Ox 100% ; al5 03:00 BP 100 / 68; Pulse 88; Resp 12; Pulse Ox 100% ; al5 03:30 BP 99 / 70; Pulse 88; Resp 12; Pulse Ox 100% ; al5 04:00 BP 101 / 70; Pulse 89; Resp 14; Pulse Ox 100% ; al5 09/03 20:13 Body Mass Index 19.92 (59.42 kg, 172.72 cm) al5 Vitaliy Coma Score: 00:39 Eye Response: spontaneous(4). Motor Response: obeys commands(6). Verbal Response: sp4 oriented(5). Total: 15. Procedures: 09/03 20:18 Central Line: the site was prepped with Betadine, in sterile fashion, a triple lumen sp4 catheter was inserted, in the left internal jugular vein, in 1 attempts. placement was verified, by CXR, by blood return, Ultrasound-guided central line., the site was dressed with 4X4s, Tegaderm, using sterile technique, the patient tolerated the procedure, well, Ultrasound placed secondary to exhausted vascular access and acute hypotension. Performed NG tube placed by RN. MDM: 22:16 Medical Screening Exam initiated sp4 09/04 00:07 Data reviewed: vital signs, nurses notes, lab test result(s), radiologic studies, CT sp4 scan. ED course: COMPARISON: 08/22/24 FINDINGS: The lack of intravenous contrast limits the sensitivity of this exam for evaluation of solid visceral organs, vascular structures, and retroperitoneum. THORAX: LOWER NECK AND CHEST WALL: Right IJ approach Port-A-Cath. Left IJ approach central line which is angled cephalad and terminates in the right subclavian vein. This was previously communicated to the emergency department.. LUNGS AND AIRWAYS: Airways are clear. No evidence of airspace or interstitial process.No suspicious and/or stable pulmonary nodules. PLEURA: No pleural effusion. No pneumothorax. MEDIASTINUM AND LYMPH NODES: No mediastinal mass or fluid collection. Normal size mediastinal, hilar, and axillary lymph nodes. Fluid distended esophagus. THORACIC AORTA: No thoracic aortic aneurysm. Atherosclerotic changes are present. PULMONARY ARTERIES: Caliber is within normal limits. HEART: Normal heart size. Mild coronary artery calcifications.No significant pericardial effusion. ABDOMEN/PELVIS: UPPER GI: Nonspecific wall thickening of the gastric antrum which may be underdistended. LIVER: Cirrhotic liver morphology. GALLBLADDER/BILE DUCTS: Distended gallbladder which is otherwise nonspecific.? PANCREAS: No mass, ductal dilation, or saman-pancreatic fluid. SPLEEN: Unremarkable. ADRENALS: No adrenal masses. KIDNEYS AND URETERS: No hydronephrosis.Limited evaluation for renal lesions in the absence of IV contrast. RADIOLOGY SERVICES REPORT ABDOMINAL AORTA AND OTHER VESSELS: Mild atherosclerotic changes. PERITONEUM: Moderate free fluid. Free air is also present. This is primarily within the small bowel mesentery but also in the retroperitoneum. LYMPH NODES: No pathologic lymphadenopathy. ABDOMINAL WALL: Unremarkable SMALL BOWEL/COLON: Mild diffuse small bowel wall thickening. Free air is noted. This may be from small bowel in the central abdomen or possibly from the left lower quadrant. It is less likely colonic. URINARY BLADDER: Underdistended but grossly unremarkable. REPRODUCTIVE ORGANS: No pathologic process. COMBINED: MUSCULOSKELETAL: No acute or suspicious osseous abnormality. ADDITIONAL FINDINGS: None. IMPRESSION: 1. Intraperitoneal and retroperitoneal free air. Source of free air is uncertain but suspect small bowel or possibly duodenal etiology given the retroperitoneal component. The small bowel is diffusely thickened. Recommend surgical consultation. 2. Fluid distended esophagus and stomach. Consider NG tube decompression. 3. Left IJ approach central line crosses midline and terminates at the right subclavian vein. This should be removed/reposition. Finding was previously reported to the referring physician. 4. Nonspecific distended gallbladder, acute cholecystitis unlikely. . ED course: COMPARISON: No prior exam. FINDINGS: INTRACRANIAL: No acute intracranial hemorrhage. No hydrocephalus. No mass effect or midline shift. Mild chronic small vessel ischemic changes.Mild cerebral atrophy. VASCULATURE: No visualized abnormalities in the arteries or dural venous sinuses. SCALP/SKULL: No calvarial fracture identified. No acute soft tissue abnormality. SINUSES: The visualized paranasal sinuses are mostly clear. No significant mastoid fluid. IMPRESSION: No acute intracranial abnormality. . 00:44 Differential diagnosis: appendicitis, bowel obstruction, coronary artery disease, sp4 cholecystitis, Cholelithiasis, diverticulitis, gastritis, gastroesophageal reflux disease, GI Bleed. Consideration of Admission/Observation Patient was admitted/placed on observation. Escalation of care including admission/observation considered. Management of patient was discussed with the following: Drug Safety Scientist: Accepting physician. ED course: Patient discussed with Dr. Zabala of general surgeon here who advised higher level of care. Patient is best to be transferred to [facility] that is overseeing his cancer care.. 02:49 ED course: EXAM DESCRIPTION: Chest Single View RadLex: XR CHEST 1 VIEW CLINICAL sp4 HISTORY: 58 years Male, repositioning of CVL COMPARISON: None. FINDINGS: Single portable AP upright view of the chest. Right Mediport catheter tip projects over the SVC. Feeding tube tip and side-port project over the stomach. There is a left internal jugular catheter with the tip directed laterally to the right, near the expected region of the confluence of the brachiocephalic vein and SVC. Normal size of the cardiac silhouette. Lungs are clear. No pleural effusion or pneumothorax. No acute osseous abnormality. IMPRESSION: Left internal jugular catheter tip is directed laterally to the right, near the expected region of the confluence of the brachiocephalic vein and SVC. Electronically signed by: Johana Montez MD 09/04/2024 01:13 AM CDT. 21:31 ED course: [facility] could not accept patient secondary to capacity. Patient was sp4 transferred to [facility] for further investigation.. . 03/19 20:15 Order name: Blood Culture Adult (2) [facility] 09/03 20:15 Order name: CBC with Diff [facility] 09/03 20:15 Order name: CMP; Complete Time: 22:17 [facility] 09/03 20:15 Order name: Lactate w/ 2H reflex if indic.; Complete Time: 22:17 [facility] 09/03 20:15 Order name: Protime (+inr); Complete Time: 00:03 [facility] 09/03 20:15 Order name: Ptt, Activated; Complete Time: 00:03 [facility] 09/03 20:16 Order name: Troponin High Sensitivity; Complete Time: 22:17 [facility] 09/03 20:16 Order name: COVID-19 Ag + Flu A+B Ag; Complete Time: 00:03 [facility] 09/03 20:16 Order name: BNP; Complete Time: 22:17 [facility] 09/03 20:16 Order name: AMMONIA; Complete Time: 22:17 [facility] 09/03 20:16 Order name: CRP; Complete Time: 22:17 [facility] 09/03 21:25 Order name: Ghost Lactate-NO COLLECT Timer; Complete Time: 00:03 [facility] 09/04 00:16 Order name: Manual Differential [facility] 09/04 00:16 Order name: Slides for Pathologist Review [facility] 09/04 02:09 Order name: Lactate Sepsis 2 HR Follow-up [facility] 09/03 22:17 Order name: Chest Single View XRAY; Complete Time: 00:03 [facility] 09/03 22:18 Order name: CT Head Brain wo Cont; Complete Time: 00:03 [facility] 09/03 22:18 Order name: CT Chest Abdomen Pelvis W/O Contrast; Complete Time: 00:03 4 09/04 00:03 Order name: Chest Single View XRAY [facility] 09/03 20:15 Order name: Cardiac monitoring; Complete Time: 20:24 [facility] 09/03 20:15 Order name: EKG - Nurse/Tech; Complete Time: 20:24 [facility] 09/03 20:15 Order name: IV Saline Lock - Large Bore; Complete Time: 20:52 [facility] 09/03 20:15 Order name: Labs collected and sent; Complete Time: 20:52 [facility] 09/03 20:15 Order name: O2 Per Protocol; Complete Time: 20:24 [facility] 09/03 20:15 Order name: O2 Sat Monitoring; Complete Time: 20:24 sp4 09/03 20:15 Order name: Vital Signs; Complete Time: 20:52 sp4 09/03 21:08 Order name: Misc. Order: RECOLLECT LAVENDER; Complete Time: 22:17 rv1 09/03 21:15 Order name: Central Line Dressing Kit; Complete Time: 22:17 sp4 09/03 21:15 Order name: Central Line Kit; Complete Time: : sp4 09/03 21:15 Order name: Chlorhexidine prep; Complete Time: 22:17 sp4 09/03 21:15 Order name: Consent for central line completed; Complete Time: : sp4 09/03 21:15 Order name: Line Caps x3; Complete Time: 22: sp4 09/03 21:15 Order name: NS Flushes x3; Complete Time: 22:17 sp4 09/03 21:15 Order name: Sterile Gloves; Complete Time: : sp4 09/03 21:15 Order name: Sterile Probe Cover; Complete Time: : sp4 09/04 00:15 Order name: NG Tube; Complete Time: 00:47 sp4 EC/19 20:18 Rate is 96 beats/min. Rhythm is regular, Normal Sinus Rhythm. QRS [place] is Normal. DC sp4 interval is normal. QRS interval is normal. QT interval is prolonged. No Q waves. T waves are Normal. No ST changes noted. Clinical impression: No evidence of ischemia. Interpreted by me. Reviewed by me. Administered Medications: 21:26 Drug: NS 0.9% IV (30 ml/kg) 30 ml/kg IV at bolus once; Sepsis Protocol; to be given as al5 a bolus over 90 minutes Route: IV; Rate: bolus; Site: right antecubital; 09/04 00:00 Follow up: Response: No adverse reaction; IV Status: Completed infusion al5 09/03 23:01 Drug: Cefepime IVPB 2 grams IVPB at 200 ml/hr once over 30 mins; (mix in NS 100 mL) al5 Route: IVPB; Rate: 200 ml/hr; Infused Over: 30 mins; Site: right antecubital; 23:35 Follow up: Response: No adverse reaction; IV Status: Completed infusion; IV Intake: al5 100ml 23:35 Drug: vancoMYCIN IVPB 1 grams IVPB once over 2 hrs Route: IVPB; Infused Over: 2 hrs; al5 Site: right antecubital; 09/04 01:12 Follow up: Response: No adverse reaction; IV Status: Completed infusion; IV Intake: al5 250ml 09/03 23:36 Not Given (patient does not have any painn): hydromorphone0.5 mg IVP once al5 09/04 00:47 Not Given (Patient Refused): hydromorphone0.5 mg IVP once al5 01:29 Drug: Albumin IVPB 25 grams 100 ml IVPB once; (Note: Albumin 25% concentration) Volume: al5 100 ml; Route: IVPB; Site: right antecubital; 02:10 Follow up: Response: No adverse reaction; IV Status: Completed infusion; IV Intake: al5 100ml 03:44 Follow up: Response: No adverse reaction; IV Status: Completed infusion; IV Intake: al5 100ml 01:29 Drug: metoCLOPramide IVP 10 mg IVP once; over 1 to 2 minutes Route: IVP; Site: right al5 antecubital; 02:09 Follow up: Response: No adverse reaction; Nausea is decreased al5 Disposition Summary: 09/04/24 00:46 Transfer Ordered Notes: Transfer Location: [facility] sp4 Reason: Higher level of care sp4 Condition: Serious sp4 Problem: new sp4 Symptoms: have improved sp4 Accepting Physician: Attending General Brandi GARCIA (09/04/24 04:27) al5 Diagnosis - Acute bowel perforation, retroperitoneal and intraperitoneal free air, lactic sp4 acidosis, elevated troponin, syncopal episode, hypotension and shock, - Acute hyponatremia. sp4 - Severe sepsis with septic shock sp4 - Acute peritonitis sp4 Forms: - Medication Reconciliation Form sp4 - SBAR form sp4 Critical care time excluding procedures: 01:09 Critical care time: Bedside Care: 46 minutes, Consultation: 12 minutes, Family sp4 Intervention: 12 minutes. Total time: 70 minutes Signatures: Dispatcher [employer] EDJaclyn Nava rv1 Albert Yeung MD MD sp4 Norma Ferrell RN RN al5 Corrections: (The following items were deleted from the chart) 09/03 20:16 20:16 BLOOD CULTURE*+BA.LAB.BRZ ordered. EDMS EDMS 20:16 20:16 CBC+H.LAB.BRZ ordered. EDMS EDMS 20:16 20:16 COMPREHENSIVE METABOLIC PANEL+C.LAB.BRZ ordered. EDMS EDMS 20:16 20:16 LACTATE+C.LAB.BRZ ordered. EDMS EDMS 20:16 20:16 PROTIME (+INR)+COAG.LAB.BRZ ordered. EDMS EDMS 20:16 20:16 PTT, ACTIVATED+COAG.LAB.BRZ ordered. EDMS EDMS 20:16 20:16 Urinalysis+U.LAB.BRZ ordered. EDMS EDMS 20:28 20:26 Allergies: NKDA; al5 al5 21:00 20:15 Accucheck ordered. sp4 al5 09/04 02:56 00:46 Attending , General Surgeron sp4 sp4 04:27 02:56 Attending MD General Surgeron sp4 al5
--- NOTE | 2024-09-04 00:47 | ER ---
Nurse's Notes [facility] Name: Rashaad Quintero Age: 58 yrs Sex: Male : 1965 Arrival Date: 09/03/2024 Time: 20:05 Bed 14 Private MD: Diagnosis: Acute bowel perforation, retroperitoneal and intraperitoneal free air, lactic acidosis, elevated troponin, syncopal episode, hypotension and shock, ;Acute hyponatremia.;Severe sepsis with septic shock;Acute peritonitis Presentation: 09/03 20:13 Chief complaint: Patient states: c/o diarrhea, syncope, and chills without fever al5 starting today. Coronavirus screen: At this time, the client does not indicate any symptoms associated with coronavirus-19. Ebola Screen: No symptoms or risks identified at this time. Initial Sepsis Screen: Does the patient meet any 2 criteria? Temp <36.0*C (96.8*F)) or > 38.3*C (100.9*F). HR > 90 bpm. Yes Does the patient have a suspected source of infection? No. Patient's initial sepsis screen is negative. Risk Assessment: Do you want to hurt yourself or someone else? Patient reports no desire to harm self or others. Onset of symptoms was September 03, 2024. 20:13 Acuity: ORIN 3 al5 20:13 Method Of Arrival: EMS: [facility] al5 20:13 Care prior to arrival: Medication(s) given: Normal saline infusion, 250 mL NS IV al5 initiated. 20 GA, in the right antecubital area. Triage Assessment: 20:26 General: Appears in no apparent distress. ill, slender, Behavior is calm, cooperative. al5 Pain: Complains of pain in abdomen. EENT: No signs and/or symptoms were reported regarding the EENT system. Neuro: Level of Consciousness is awake, alert, obeys commands, Oriented to person, place, time, situation. Cardiovascular: Capillary refill < 3 seconds Patient's skin is warm and dry. Respiratory: Airway is patent Respiratory effort is even, unlabored, Respiratory pattern is regular, symmetrical. GI: Abdomen is flat, non-distended, Reports lower abdominal pain, upper abdominal pain, diarrhea, nausea. : No signs and/or symptoms were reported regarding the genitourinary system. Derm: Skin is intact, Skin is normal. Musculoskeletal: Reports weakness. Historical: - Allergies: 20:28 Morphine; al5 - PMHx: 20:26 colorectal and stomach cancer; al5 - PSHx: 20:26 None; al5 - Immunization history:: Adult Immunizations up to date. - Infectious Disease History:: Denies. - Social history:: Smoking status: Patient denies any tobacco usage or history of. - Family history:: not pertinent. Screenin:27 [facility] ED Fall Risk Assessment (Adult) History of falling in the last 3 months, al5 including since admission No falls in past 3 months (0 pts) Confusion or Disorientation No (0 pts) Intoxicated or Sedated No (0 pts) Impaired Gait Yes (1 pt) Mobility Assist Device Used Yes (1 pt) Altered Elimination Yes (1 pt) Score/Fall Risk Level 3 or more points = High Risk Oriented to surroundings, Maintained a safe environment, Hourly rounding (assess needs \T\ fall precautionary measures) done. Abuse screen: Denies threats or abuse. Denies injuries from another. Nutritional screening: No deficits noted. Tuberculosis screening: No symptoms or risk factors identified. Assessment: 20:26 Reassessment: see triage assessment. al5 20:26 GI: Bowel sounds present X 4 quads. Abd is soft X 4 quads Abdomen is tender to al5 palpation X 4 quads. 21:45 Reassessment: Patient appears in no apparent distress at this time. No changes from al5 previously documented assessment. Patient and/or family updated on plan of care and expected duration. Pain level reassessed. Patient is alert, oriented x 3, equal unlabored respirations, skin warm/dry/pink. 23:25 Reassessment: Patient appears in no apparent distress at this time. No changes from al5 previously documented assessment. Patient and/or family updated on plan of care and expected duration. Pain level reassessed. Patient is alert, oriented x 3, equal unlabored respirations, skin warm/dry/pink. 20 01:00 Reassessment: Patient appears in no apparent distress at this time. No changes from al5 previously documented assessment. Patient and/or family updated on plan of care and expected duration. Pain level reassessed. Patient is alert, oriented x 3, equal unlabored respirations, skin warm/dry/pink. 02:14 Reassessment: Patient appears in no apparent distress at this time. No changes from al5 previously documented assessment. Patient and/or family updated on plan of care and expected duration. Pain level reassessed. Patient is alert, oriented x 3, equal unlabored respirations, skin warm/dry/pink. 03:26 Reassessment: Patient appears in no apparent distress at this time. No changes from al5 previously documented assessment. Patient and/or family updated on plan of care and expected duration. Pain level reassessed. Patient is alert, oriented x 3, equal unlabored respirations, skin warm/dry/pink. 04:01 Reassessment: gave report to amaya campbell at [facility] surgical ICU. al5 04:26 Reassessment: Patient appears in no apparent distress at this time. No changes from al5 previously documented assessment. Patient and/or family updated on plan of care and expected duration. Pain level reassessed. Patient is alert, oriented x 3, equal unlabored respirations, skin warm/dry/pink. gave report to September [facility]MAYA life flight , patient being transferred via life flight at this time. Vital Signs: 09/03 20:13 BP 101 / 77; Pulse 96; Resp 16; Temp 94.3; Pulse Ox 100% on R/A; Weight 59.42 kg; al5 Height 5 ft. 8 in. ; 20:30 BP 96 / 71; Pulse 93; Resp 13; Pulse Ox 100% ; al5 21:00 BP 92 / 65; Pulse 96; Resp 19; Pulse Ox 99% on R/A; al5 21:30 BP 93 / 57; Pulse 95; Resp 18; Pulse Ox 99% on R/A; al5 22:15 BP 110 / 84; Pulse 83; Resp 16; Temp 97.6; Pulse Ox 100% on R/A; al5 22:30 BP 108 / 80; Pulse 82; Resp 17; Pulse Ox 100% ; al5 23:00 BP 91 / 74; Pulse 87; Resp 14; Pulse Ox 100% ; al5 23:30 BP 118 / 77; Pulse 76; Resp 14; Pulse Ox 100% ; al5 09/04 00:00 BP 117 / 78; Pulse 74; Resp 15; Pulse Ox 100% ; al5 00:30 BP 107 / 85; Pulse 87; Resp 16; Pulse Ox 100% ; al5 01:00 BP 105 / 81; Pulse 86; Resp 17; Pulse Ox 100% ; al5 01:30 BP 108 / 70; Pulse 87; Resp 14; Pulse Ox 100% ; al5 02:00 BP 108 / 78; Pulse 89; Resp 15; Pulse Ox 100% ; al5 02:30 BP 102 / 75; Pulse 86; Resp 14; Pulse Ox 100% ; al5 03:00 BP 100 / 68; Pulse 88; Resp 12; Pulse Ox 100% ; al5 03:30 BP 99 / 70; Pulse 88; Resp 12; Pulse Ox 100% ; al5 04:00 BP 101 / 70; Pulse 89; Resp 14; Pulse Ox 100% ; al5 09/03 20:13 Body Mass Index 19.92 (59.42 kg, 172.72 cm) al5 Austin Coma Score: 00:39 Eye Response: spontaneous(4). Motor Response: obeys commands(6). Verbal Response: sp4 oriented(5). Total: 15. ED Course: 09/03 20:13 Patient arrived in ED. rv1 20:13 Arm band placed on right wrist. Patient placed in the treatment room, in view of staff al5 members, on library monitor, on pulse oximetry. 20:14 Albert Yeung MD is Attending Physician. sp4 20:24 Norma Ferrell RN is Primary Nurse. al5 20:26 Triage completed. al5 20:26 Maintain EMS IV. Dressing intact. Site clean \T\ dry. Gauge \T\ site: 20G RAC. Flushed with al 5 10 mL NS does not pull back blood. 20:28 Patient has correct armband on for positive identification. Placed in gown. Bed in low al5 position. Call light in reach. Side rails up X2. Provided Education on: plan of care. 21:50 Assisted provider with central line placement. Set up central line tray. Triple lumen al5 line placed in left subclavian. Line placed by Albert Yeung MD Placement verified by CXR, blood return, Dressed with Tegaderm, Blood was collected. Patient tolerated well. Before procedure, did Practitioner(s) obtain informed consent? Yes. Patient \T\ family education about procedure, CLABSI prevention and S/S of infection? Yes. Time-out/Briefing performed prior to start of procedure? Yes. Was handwashing/sanitizing done immediately prior to procedure? Yes. Was patient positioned to in a way to prevent air embolism? Yes. Was procedure site sterilized? Yes, with chlorhexidine. Was the site allowed to dry? Yes. Was local anesthetic and/or sedation utilized? Yes. During the procedure, did the Practitioner(s) maintain a sterile field? Yes. Were unused ports clamped during insertion? Yes. Was a 2nd qualified MD obtained after 3 unsuccessful insertion attempts? No. Was blood aspirated from each lumen? Yes. After the procedure, did the Practitioner(s) clean the site and apply a sterile dressing? Yes. 22:17 COVID-19 Ag + Flu A+B Ag Sent. al5 22:25 Chest Single View XRAY In Process Unspecified. EDMS 22:46 CT Head Brain wo Cont In Process Unspecified. EDMS 22:46 CT Chest Abdomen Pelvis W/O Contrast In Process Unspecified. EDMS 09/04 00:13 Initiated transfer with Ashlee at [facility]. rv1 00:36 Chest Single View XRAY In Process Unspecified. EDMS 00:40 [facility] Declined due to capacity. Provider notified. Attempting with 1 [facility]. 00:43 Attempted to Initiate with [facility], No answer, Will Call Back. rv1 00:47 NGT: inserted 16 Fr. via right nare. al5 00:48 Attempted to initiate with [facility], no answer, will call back. rv1 04:26 Patient transferred, IV remains in place. al5 Administered Medications: 09/03 21:26 Drug: NS 0.9% IV (30 ml/kg) 30 ml/kg IV at bolus once; Sepsis Protocol; to be given as al5 a bolus over 90 minutes Route: IV; Rate: bolus; Site: right antecubital; 09/04 00:00 Follow up: Response: No adverse reaction; IV Status: Completed infusion al5 09/03 23:01 Drug: Cefepime IVPB 2 grams IVPB at 200 ml/hr once over 30 mins; (mix in NS 100 mL) al5 Route: IVPB; Rate: 200 ml/hr; Infused Over: 30 mins; Site: right antecubital; 23:35 Follow up: Response: No adverse reaction; IV Status: Completed infusion; IV Intake: al5 100ml 23:35 Drug: vancoMYCIN IVPB 1 grams IVPB once over 2 hrs Route: IVPB; Infused Over: 2 hrs; al5 Site: right antecubital; 09/04 01:12 Follow up: Response: No adverse reaction; IV Status: Completed infusion; IV Intake: al5 250ml 09/03 23:36 Not Given (patient does not have any painn): hydromorphone0.5 mg IVP once al5 09/04 00:47 Not Given (Patient Refused): hydromorphone0.5 mg IVP once al5 01:29 Drug: Albumin IVPB 25 grams 100 ml IVPB once; (Note: Albumin 25% concentration) Volume: al5 100 ml; Route: IVPB; Site: right antecubital; 02:10 Follow up: Response: No adverse reaction; IV Status: Completed infusion; IV Intake: al5 100ml 03:44 Follow up: Response: No adverse reaction; IV Status: Completed infusion; IV Intake: al5 100ml 01:29 Drug: metoCLOPramide IVP 10 mg IVP once; over 1 to 2 minutes Route: IVP; Site: right al5 antecubital; 02:09 Follow up: Response: No adverse reaction; Nausea is decreased al5 Medication: 09/03 20:27 VIS not applicable for this client. al5 Intake: 23:35 IV: 100ml; Total: 100ml. al5 09/04 01:12 IV: 250ml; Total: 350ml. al5 02:10 IV: 100ml; Total: 450ml. al5 03:44 IV: 100ml; Total: 550ml. al5 Outcome: 00:46 ER care complete, transfer ordered by MD. carreon 04:27 Transferred by helicopter to [facility], al5 04:27 Condition: stable 04:27 Instructed on the need for transfer, 04:27 Patient left the ED. al5 Addendum: 09/06/2024 08:15 Addendum: Culture Results: Positive blood culture. Phone call Attempt #1 Pt was a a5 transferred to [facility], spoke to nurse Dominguez and was notified of blood culture results and results faxed to [phone]. Signatures: Dispatcher [employer] EDMS Elicia Dela Cruz RN RN aa5 Terry Jaclyn rv1 Albert Yeung MD MD sp4 Norma Ferrell RN RN al5 Corrections: (The following items were deleted from the chart) 09/03 20: 20:24 Chief complaint: Patient states: c/o diarrhea, syncope, and chills without fever al5 starting today al5 20:24 Coronavirus screen: At this time, the client does not indicate any symptoms al5 associated with coronavirus-19. al5 20:24 Ebola Screen: No symptoms or risks identified at this time. al5 al5 : 20:24 Initial Sepsis Screen: Does the patient meet any 2 criteria? Temp <36.0*C al5 (96.8*F)) or > 38.3*C (100.9*F). HR > 90 bpm. Yes Does the patient have a suspected source of infection? No. Patient's initial sepsis screen is negative. al5 : 20:24 Risk Assessment: Do you want to hurt yourself or someone else? Patient reports no al5 desire to harm self or others. al5 : 20:24 Onset of symptoms was September 03, 2024 al5 al5 20:24 Method Of Arrival: EMS: [facility] al5 al5 : 20:24 BP 101 / 77; Pulse 96bpm; Resp 16bpm; Pulse Ox 100% RA; Temp 94.3F; 59.42 kg; al5 Height 5 ft. 8 in.; BMI: 19.9; al5 : 20:24 Acuity: ORIN 3 al5 al5 20:28 20:26 Allergies: NKDA; al5 al5 22:54 20:28 No provider procedures requiring assistance completed. al5 al5
[2024-09-04] MEDS ORDERED: ALBUMIN HUMAN 25% 100 ML IV ONE (01:16)
[2024-09-04] MEDS ORDERED: METOCLOPRAMIDE 10 MG/2mL INJ ONE (01:16)
[2024-09-04 02:36] LABS: Band Neutrophils 5 % (0-1); Blood Morphology Comment NOTED (NOT SEEN); Burr Cells 1+; Differential Total Cells Count 100; Lymphocytes 39 % (15-42); Monocytes 3 % (0-10); Nucleated Red Blood Cells 2 /100WBC; Ovalocytes 1+; Platelet Estimate DECR; Reactive Lymphocytes 2 %; Segmented Neutrophils 51 % (40-80)
[2024-09-04 04:39] VITALS: TEMP 97.6; O2SAT 100
[2024-09-04 04:53] VITALS: BP 101/70
--- NOTE | 2024-09-04 05:49 | RAD REPORT ---
EXAM DESCRIPTION: Chest Single View RadLex: XR CHEST 1 VIEW CLINICAL HISTORY: 58 years Male, repositioning of CVL COMPARISON: None. FINDINGS: Single portable AP upright view of the chest. Right Mediport catheter tip projects over the SVC. Feed ing tube tip and side-port project over the stomach. There is a left internal jugular catheter with the tip directed laterally to the right, near the expected region of the confluence of the brachiocep halic vein and SVC. Normal size of the cardiac silhouette. Lungs are clear. No pleural effusion or pneumothorax. No acute osseous abnormality. IMPRESSION: Left internal jugular catheter tip is directed laterally to the right, near the expected region of th e confluence of the brachiocephalic vein and SVC. Electronically signed by: Johana Montez MD 09/04/2024 01:13 AM CDT Due to temporary technical issues with the PACS/Center'd reporting system, reports are being darrick d by the in-house radiologist without review as a courtesy to ensure prompt reporting the interpreting radiologist is fully responsible for the content of the report. Transcribed Date/Time: 09/04/2024 5:49 AM
[2024-09-04 16:54] LABS: Slides for Pathologist Review DONE
--- NOTE | 2024-09-08 12:16 | EKG ---
Test Date: 2024-09-03 Test Time: 20:18:04 Director Medicaid: CONSTANCE MEASUREMENT RESULTS: Intervals: Rate: 96 MS: 146 QRSD: 108 QT: 400 QTc: 505 [place]: P: 62 MS: 146 QRS: 70 T: 67 INTERPRETIVE STATEMENTS: Normal sinus rhythm Prolonged QT Abnormal ECG Compared to ECG 08/22/2024 20:53:13 No significant changes Electronically Signed On 09-08-24 12:05:55 CDT by Preston Bone
== END 2024-09-04 04:27 | disposition short-term general hospital (02) ==
LOC: ER 20:05
DX: K63.1 Perforation of intestine (nontraumatic) (principal); R65.21 Severe sepsis with septic shock; K65.9 Peritonitis, unspecified; E87.1 Hypo-osmolality and hyponatremia; I95.9 Hypotension, unspecified; E87.20 Acidosis, unspecified; Z85.038 Personal history of other malignant neoplasm of large intestine; Z85.048 Personal history of other malignant neoplasm of rectum, rectosigmoid junction, and anus; Z85.028 Personal history of other malignant neoplasm of stomach; Z11.52 Encounter for screening for COVID-19
CPT/HCPCS: 96365; 96367; 93005; 87040 ×2; 85025; 36415; 82140; 87205 ×4; 85610; 83605 ×2; 85730; 87077 ×2; 87186 ×2; 84484; 80053; 83880; 86140; 70450; 71250; 74176; 71045 ×2; 96375; 99285; 36556; 87428; J2765; J3370; J0692; P9047; J7050; J7030 ×2